=== PATIENT | male | born 1985 | race Caucasian/White ===

== ENCOUNTER → 2021-04-13 | Outpatient (CLI) | payer OTHER | LOC: MRI 12:17 | PROVIDERS: ATTEND Internal Medicine | DX: M54.12 Radiculopathy, cervical region (principal) | CPT/HCPCS: 72141 ==

== ENCOUNTER → 2021-05-24 | Outpatient (CLI) | payer OTHER | LOC: RAD 12:24 | PROVIDERS: ATTEND Neurological Surgery | DX: M50.20 Other cervical disc displacement, unspecified cervical region (principal); M43.22 Fusion of spine, cervical region | CPT/HCPCS: 72050 ==

== ENCOUNTER 2021-06-05 11:00 | Outpatient (RCR) | payer OTHER | END 2021-06-12 | LOC: PT 11:00 | PROVIDERS: ATTEND Neurological Surgery | DX: M50.123 Cervical disc disorder at C6-C7 level with radiculopathy (principal) ==

== ENCOUNTER 2021-07-03 11:00 | Outpatient (RCR) | payer OTHER | END 2021-07-13 | LOC: PT 11:00 | PROVIDERS: ATTEND Neurological Surgery | DX: M50.123 Cervical disc disorder at C6-C7 level with radiculopathy (principal) ==